=== PATIENT | male | born 1965 | race Caucasian/White ===

== ENCOUNTER 2018-08-01 19:39 | Emergency (ER) | payer BC ==
[2018-08-01] MEDS ORDERED: Ketorolac INJ* 30 MG/ML 1 ML VIAL IV PUSH ONE (21:13)
[2018-08-01] MEDS ORDERED: NS 0.9% 1000 ML* 1,000 ML IV ONE (21:13)
[2018-08-01] MEDS ORDERED: Metoclopramide IV* 5 MG/ML 2 ML VIAL IV SLOW PU ONE (21:13)
[2018-08-01] MEDS ORDERED: diPHENhydraMINE PO* 50 MG PO ONE (21:14)
--- NOTE | 2018-08-01 21:17 | ED ---
Headache - HPI Summary HPI Summary: The pt is a 52 y.o male presenting to the [facility] with a chief complaint of a headache. He describes the headache as lasting days (two) and worst "last night. " The headache is reported to be a constant pain with a initial severity of 10/ 10 which later decreased to an 8/10 during his stay at the [facility]. The symptoms were previously alleviated by Tylenol and Advil but have reported come back. The pt denies vomiting, aggravation by light source, and fever. Allergies reported and no other PMHx reported. - History Of Current Complaint Chief Complaint: EDHeadache Stated Complaint: HEADACHE/SINUS/X2DAYS Time Seen by Provider: 08/01/18 20:41 Hx Obtained From: Patient Onset/Duration: Gradual Onset, Started days ago - two days ago Initially Headache Was: Initial Pain Scale(0-10)= - 10 Currently Pain Is: Current Pain Scale(0-10)= - 8 Timing: Constant Aggravating Factor: Nothing Allevating Factors: Medication - Tylenol and Advil Associated Signs And Symptoms: Other (Noted In Comments) - Negative fever, and vomiting. - Allergies/Home Medications Allergies/Adverse Reactions: Allergies Allergy/AdvReac Type Severity Reaction Status Date / Time codeine Allergy Unknown Verified 08/01/18 19:55 Reaction Details PMH/Surg Hx/FS Hx/Imm Hx Sensory History: Denies: Hx Deafness Opthamlomology History: Denies: Hx Legally Blind EENT History: Denies: Hx Deafness Infectious Disease History: No Infectious Disease History: Denies: Traveled Outside the [place] in Last 30 Days - Family History Family History: Reviewed and Noncontributory - Social History Occupation: Employed Full-time Alcohol Use: Occasionally Substance Use Type: Reports: Marijuana Smoking Status (MU): Never Smoked Tobacco Review of Systems Negative: Fever Eyes: Negative ENT: Negative Cardiovascular: Negative Respiratory: Negative Negative: Vomiting Genitourinary: Negative Musculoskeletal: Negative Skin: Negative Positive: Headache Psychological: Normal All Other Systems Reviewed And Are Negative: Yes Physical Exam - Summary Physical Exam Summary: VITAL SIGNS: Reviewed. GENERAL: Patient is a well-developed and nourished (MALE) who is lying comfortable in the stretcher. Patient is not in any acute respiratory distress. HEAD AND FACE: No signs of trauma. No ecchymosis, hematomas or skull depressions. No sinus tenderness. EYES: PERRLA, EOMI x 2, No injected conjunctiva, no nystagmus. EARS: Hearing grossly intact. Ear canals and tympanic membranes are within normal limits. MOUTH: Oropharynx within normal limits. NECK: Supple, trachea is midline, no adenopathy, no JVD, no carotid bruit, no c- spine tenderness, neck with full ROM. CHEST: Symmetric, no tenderness at palpation LUNGS: Clear to auscultation bilaterally. No wheezing or crackles. CVS: Regular rate and rhythm, S1 and S2 present, no murmurs or gallops appreciated. ABDOMEN: Soft, non-tender. No signs of distention. No rebound no guarding, and no masses palpated. Bowel sounds are normal. EXTREMITIES: FROM in all major joints, no edema, no cyanosis or clubbing. NEURO: Alert and oriented x 3. No acute neurological deficits. Speech is normal and follows commands. SKIN: Dry and warm Triage Information Reviewed: Yes Vital Signs On Initial Exam: Initial Vitals Temp Pulse Resp BP Pulse Ox 99 F 75 20 152/90 99 08/01/18 19:52 08/01/18 19:52 08/01/18 19:52 08/01/18 19:52 08/01/18 19:52 Vital Signs Reviewed: Yes Diagnostics - Vital Signs Vital Signs Temp Pulse Resp BP Pulse Ox 08/01/18 19:52 99 F 75 20 152/90 99 - Laboratory Lab Statement: Any lab studies that have been ordered have been reviewed, and results considered in the medical decision making process. Headache Course/Dx - Course Course Of Treatment: The pt is a 52 y.o male with a chief complaint of headache. The pt will be discharged home. Upon his stay at the [facility], the pt's LLOYD decreased in severity from an initial 10/10 to a current 4/10. The dx will be LLOYD. - Diagnoses Provider Diagnoses: Headache Discharge - Sign-Out/Discharge Documenting (check all that apply): Patient Departure - Discharge Home - Discharge Plan Condition: Stable Disposition: HOME Patient Education Materials: Acute Headache (ED) Referrals: [facility] [Provider Group] Additional Instructions: RETURN TO THE EMERGENCY DEPARTMENT FOR CHANGING OR WORSENING SYMPTOMS. FOLLOW UP WITH PCP IN 1-2 DAYS. - Attestation Statements Document Initiated by Scribe: Yes Documenting Scribe: Joe Dela Cruz Provider For Whom Scribe is Documenting (Include Credential): Dr. Christos Mack Scribe Attestation: IJoe, scribed for Dr. Christos Mack on 08/01/18 at [id number].
[2018-08-01] MEDS ORDERED: diPHENhydraMINE PO* 25 MG PO ONE (21:44)
[2018-08-01] MEDS ORDERED: diPHENhydraMINE PO* 25 MG ONE (21:44)
[2018-08-01 23:12] VITALS: BP 128/98
== END 2018-08-01 23:10 | disposition home or self-care (01) ==
LOC: ED 19:39
DX: R51 Headache (principal)
CPT/HCPCS: 96374; 96375; 99283; A9270-GY; J1885; J2765